=== PATIENT | female | born 1985 | race Caucasian/White ===

== ENCOUNTER 2021-01-22 01:45 | Emergency (ER) | payer OTHER ==
[~2021-01-22] VITALS: Ht 162.6 cm; Wt 72.7 kg
[2021-01-22 03:12] LABS: COLLECTION METHOD CLEAN CATCH
[2021-01-22 03:16] LABS: MUCOUS Present /lpf; PH 5 (5-8); SQUAMOUS EPITHELIAL 0-2 /hpf; URINE APPEARANCE Clear; URINE BACTERIA None Seen /hpf; URINE BILIRUBIN Negative (NEGATIVE); URINE BLOOD 3+ (NEGATIVE); URINE COLOR Yellow; URINE GLUCOSE Negative (NEGATIVE); URINE KETONE Negative (NEGATIVE); URINE LEUKOCYTE ESTERASE Negative (NEGATIVE); URINE NITRATE Negative (NEGATIVE); URINE PROTEIN(semi-quant) Negative (NEGATIVE); URINE RBC >50 /hpf; URINE UROBILINOGEN Negative (NEGATIVE)
[2021-01-22 03:26] LABS: TRICYCLIC ANTIDEPRESS URINE NEGATIVE
[2021-01-22 03:45] LABS: BASO # 0.1 (0.0-0.2); EOS # 0.3 (0.0-0.7); GRAN # 2.9 (1.4-6.5); GRAN % 49.2 % (42.2-75.2); LYMPH # 2.1 (1.2-3.4); LYMPH % 36.2 % (20.0-51.0); MEAN CELL VOLUME 80 fl (80.0-100.0); MEAN CORPUSCULAR HEMOGLOBIN 25 pg (27.0-31.0); MEAN CORPUSCULAR HGB CONC 31 g/dl (33.0-37.0); MEAN PLATELET VOLUME 9.9 fl (7.4-10.4); MONO # 0.5 (0.1-0.6); MONO % 8.6 % (1.7-9.3); PLATELET COUNT 254 K/mm3 (130-400); REDCELL DISTRIBUTION WIDTH-CV 17.7 % (11.5-14.5)
[2021-01-22 03:49] LABS: HEMATOCRIT 35.2 % (37.0-47.0)
[2021-01-22 03:56] LABS: ALANINE AMINOTRANSFERASE 17 U/L (4-34); ALBUMIN 4.2 gm/dL (3.5-5.0); ALKALINE PHOSPHATASE 46 U/L (50-136); ANION GAP 5 mmol/L (7-16); AST,SGOT 24 U/L (15-37); BILIRUBIN,TOTAL < 0.1 mg/dL (0.0-1.0); BLOOD UREA NITROGEN 11 mg/dL (7-17); CALCIUM 9.2 mg/dL (8.4-10.2); CARBON DIOXIDE 26 mmol/L (22-30); CHLORIDE 107 mmol/L (98-107); CREATININE, serum 0.72 (0.52-1.25); GLUCOSE 94 mg/dL (74-106); POTASSIUM 3.9 mmol/L (3.4-5.0); SODIUM 139 mmol/L (137-145); TOTAL PROTEIN 7.5 gm/dL (6.4-8.2)
[2021-01-22 03:58] LABS: ACETAMINOPHEN < 10 ug/mL (10-30); ALCOHOL(ethanol),MEDICAL < 10 mg/dL; SALICYLATE < 1.0 mg/dL
[2021-01-22 07:10] VITALS: TEMP 97.5
[2021-01-22] MEDS ORDERED: LAMICTAL 100MG100 MG PO (09:15)
[2021-01-22] MEDS ORDERED: PROZAC 20MG20 MG PO (09:15)
[2021-01-22 10:06] VITALS: BP 136/77; PULSE 81
== END 2021-01-22 10:05 ==
LOC: COL.ER 01:45
PROVIDERS: Emergency Medicine
DX: R45.851 Suicidal ideations (principal); R45.89 Other symptoms and signs involving emotional state; Z20.822 Contact with and (suspected) exposure to COVID-19